=== PATIENT | female | born 1965 | race American Indian/Alaskan Native ===

== ENCOUNTER 2019-03-11 11:15 | Outpatient (CLI) | payer BC ==
--- NOTE | 2019-03-11 13:30 | Mammography Report ---
BILATERAL DIGITAL SCREENING MAMMOGRAM WITH CAD: 03/11/19 11:15:00 CLINICAL: Routine screening. COMPARISON:02/14/15 and 01/25/15 FINDINGS: The breasts are heterogeneously dense, which may obscure small masses. A 6 mm irregular mass with calcifications in the central posterior left breast requires additional imaging.No architectural distortion. The right breast is negative. IMPRESSION: A 6 mm left breast mass with calcifications requiring further workup. BI-RADS CATEGORY: 0 -- Additional Imaging Evaluation Required RECOMMENDATION: Recall for left ML and spot magnification CC and ML views and left breast ultrasound if needed. COMMENT: 1. Dense breast tissue, i.e., adenosis, fibrocystic changes, etc., may obscure an underlying neoplasm. 2. Approximately 10% of cancers are not detected with mammography. 3. A negative mammography report should not delay biopsy if a clinically suspicious mass is present. COMMENT: Patient follow-up letters are generated via our [employer] application.
== END 2019-03-11 11:16 | disposition home or self-care (01) ==
LOC: SPVWC 11:15
PROVIDERS: ATTEND Family Medicine
DX: Z12.31 Encounter for screening mammogram for malignant neoplasm of breast (principal)
CPT/HCPCS: 77067

== ENCOUNTER 2019-03-24 14:50 | Outpatient (CLI) | payer BC ==
--- NOTE | 2019-03-24 16:03 | Mammography Report ---
LEFT DIGITAL DIAGNOSTIC MAMMOGRAM INDICATION: Recall to evaluate a mass with calcifications identified at screening. TECHNIQUE: Digital left mammographic imaging was performed. COMPARISON: 03/11/2019 FINDINGS: Breast Density: There are scattered areas of fibroglandular density. No mass or calcifications are identified on ML and spot magnification ML and CC views. IMPRESSION: BI-RADS Category 1: Negative. Recommend routine screening mammography in one year. A "normal" or negative report should not discourage follow up or biopsy of a clinically significant f inding. A written summary of these findings will be mailed to the patient. The patient will be entered into a mammography reporting system which will generate a reminder letter for the patient's next appointmen t at the appropriate interval. FURTHER INFORMATION: According to the [employer], yearly mammograms are recommend ed starting at age 40 and continuing as long as a woman is in good health. Breast MRI is recommended for women with an approximately 20-25% or greater lifetime risk of breast cancer, including women wi th a strong family history of breast or ovarian cancer and women who have been treated for Hodgkin's disease. Signer Name: Eric Castillo MD Signed: 03/24/2019 3:59 PM Workstation Name: [id number]
== END 2019-03-24 14:51 | disposition home or self-care (01) ==
LOC: SPVWC 14:50
PROVIDERS: ATTEND Family Medicine
DX: R92.8 Other abnormal and inconclusive findings on diagnostic imaging of breast (principal)

== ENCOUNTER 2020-05-03 12:53 | Outpatient (CLI) | payer OTHER ==
--- NOTE | 2020-05-03 15:06 | Mammography Report ---
DIGITAL DIAGNOSTIC MAMMOGRAM WITH CAD, -- 05/03/2020 INDICATION: Postbiopsy mammogram following left breast stereotactic biopsy. TECHNIQUE: Digital left mammographic imaging was performed. This examination was interpreted with the benefit of Computer-aided Detection analysis. COMPARISON: Prior mammogram 04/12/2020 FINDINGS: Breast Density: There are scattered areas of fibroglandular density. Postbiopsy mammogram reveals a biopsy clip in the posterior lower outer quadrant of the left breast. The biopsy clip has migrated approximately 2.5 cm medially. The previously described calcifications h ave been completely removed and are present on specimen radiograph. IMPRESSION: 1. Postbiopsy mammogram as detailed above. Pathology pending. Follow up recommendation: No recall. Post biopsy imaging. A "normal" or negative report should not discourage follow up or biopsy of a clinically significant f inding. A written summary of these findings will be mailed to the patient. The patient will be entered into a mammography reporting system which will generate a reminder letter for the patient's next appointmen t at the appropriate interval. According to the [employer], yearly mammograms are recommended starting at age 40 and continuing as long as a woman is in good health. Breast MRI is recommended for women with an romy roximately 20-25% or greater lifetime risk of breast cancer, including women with a strong family his tory of breast or ovarian cancer and women who have been treated for Hodgkin's disease. Signer Name: Cynthia Fischer MD Signed: 05/03/2020 3:01 PM Workstation Name: [id number]
--- NOTE | 2020-05-03 16:37 | Mammography Report ---
LEFT BREAST BREAST STEREOTACTIC CORE NEEDLE BIOPSY INDICATION: Patient presents for left stereotactic biopsy. The procedure was explained to the patient and informed consent obtained. PROCEDURE: The patient was positioned on the prone biopsy table with wire preparation machine tender and stereotactic images o btained of the left breast. After appropriate imaging, the breast was prepped with Betadine swabs. A total of 10 mL of 1% buffered lidocaine and 10 mL 1% lidocaine with epinephrine was injected using a 25-gauge needle to anesthetize the area surrounding the mammographic lesion. Using a lateral approach, a 9-gauge vacuum-assisted core needle biopsy device was inserted through t he incision to the level of the lesion following the stereotactic coordinates. Stereotactic images we re obtained to confirm accurate positioning of the probe. A total of 6 tissue specimens were excised and transported through the probe. Individual tissue specimens were placed in the lid of the sterile specimen container and radiographed . Upon completion of the procedure, the specimens were placed in a 10% formalin solution and sent for histologic analysis. Pressure was held on the biopsy site utilizing the sterile 4 x 4 gauze until all bleeding subsided. A gauze dressing was placed over the biopsy site to provide a pressure dressing. Postbiopsy instructio ns were reviewed with the patient and a copy given to her. No immediate complications occurred. INTERPRETATION: Digital images made during the procedure show the probe to be appropriately position ed during the biopsy. A micromarker clip was introduced through the probe to the level of the biopsy site POST-PROCEDURE MAMMOGRAM: Refer to separately dictated postbiopsy mammogram. SPECIMEN RADIOGRAPH: Magnification images of the tissue specimen were obtained. Calcifications from the mammographic lesion were present in the tissue specimens. HISTOLOGY: PENDING IMPRESSION: 1. PERCUTANEOUS STEREOTACTICALLY-GUIDED BIOPSY OF THE LEFT BREAST. THE HISTOLOGIC FINDINGS ARE PENDI NG. Signer Name: Cynthia Fischer MD Signed: 05/03/2020 4:33 PM Workstation Name: [id number]
== END 2020-05-03 12:54 | disposition home or self-care (01) ==
LOC: SPVWC 12:53
PROVIDERS: ATTEND Family Medicine
DX: R92.1 Mammographic calcification found on diagnostic imaging of breast (principal); D24.2 Benign neoplasm of left breast; R92.0 Mammographic microcalcification found on diagnostic imaging of breast
CPT/HCPCS: 19081; 77065; 88305; A4648

== ENCOUNTER 2021-03-16 13:38 | Outpatient (CLI) | payer OTHER ==
--- NOTE | 2021-03-16 18:29 | Mammography Report ---
DIGITAL SCREENING MAMMOGRAM WITH CAD, 03/16/2021 CLINICAL INFORMATION / INDICATION: Routine screening mammography. SCREENING MAMMO TECHNIQUE: Digital bilateral 2D mammography was obtained in the craniocaudal and mediolateral obliqu e projections. This examination was interpreted with the benefit of Computer-Aided Detection analysis . COMPARISON: 03/15/2020 FINDINGS: Breast Density: There are scattered areas of fibroglandular density. No dominant mass, suspicious calcifications, or architectural distortion in the right breast. Biopsy marking clip is noted on the left. There is a new nodular density in the 9:00 position of the left breast in the anterior depth near the nipple. This measures approximately 8 mm. IMPRESSION: There is a new 8 mm nodular density in the left breast 9:00 position in the anterior dept h near the nipple. Follow up recommendation: Ultrasound BI-RADS Category 0: Incomplete. Needs additional imaging evaluation and/or prior mammograms for eliceo sanders. A "normal" or negative report should not discourage follow up or biopsy of a clinically significant f inding. A written summary of these findings will be mailed to the patient. The patient will be entered into a mammography reporting system which will generate a reminder letter for the patient's next appointmen t at the appropriate interval. The [employer] recommends yearly mammograms starting at age 40 and continuing as l [place] as a woman is in good health. Breast MRI is recommended for women with an approximate 20-25% or greater lifetime risk of breast cancer, including women with a strong family history of breast or ova tj cancer or who have been treated for Hodgkin's disease. Signer Name: Torsten Arellano MD Signed: 03/16/2021 6:24 PM Workstation Name: [id number]
== END 2021-03-16 13:39 | disposition home or self-care (01) ==
LOC: SPVWC 13:38
PROVIDERS: ATTEND Family Medicine
DX: Z12.31 Encounter for screening mammogram for malignant neoplasm of breast (principal)
CPT/HCPCS: 77067

== ENCOUNTER 2021-03-28 13:37 | Outpatient (CLI) | payer OTHER ==
--- NOTE | 2021-03-28 14:15 | Ultrasound Report ---
ULTRASOUND BREAST LEFT LIMITED, 03/28/2021 CLINICAL INFORMATION / INDICATION: ABNORMAL MAMMOGRAM. Patient presents as a callback from screening mammogram for further evaluation of a new nodular density in the left breast. TECHNIQUE: Targeted ultrasound evaluation was performed of the area of interest. COMPARISON: Prior mammogram 03/16/2021 FINDINGS: Corresponding with the new nodular density seen on recent mammogram, there is a 6 mm complicated cyst versus complex cystic and solid lesion in the left breast 9:00 position located 2 cm from the nipple . No internal vascularity is demonstrated. Targeted ultrasound of the left axilla reveals a few mildl y prominent lymph nodes with cortical thickness measuring up to 5 mm. IMPRESSION: 1. A complicated cyst versus complex cystic and solid lesion corresponds with the recent mammographic finding. This is considered low suspicion for malignancy. However, because this is new, ultrasound-g uided aspiration versus biopsy is recommended. 2. Mildly prominent left axillary lymph nodes are indeterminate but most likely reactive given report ed history of recent Covid vaccination in the left arm. A follow-up left axillary ultrasound could be performed in 3 months to ensure stability or resolution. Follow up recommendation: Biopsy BI-RADS Category 4: Suspicious for Malignancy. A normal or "negative" report should not preclude biopsy or follow-up of a clinically suspicious find ing. Signer Name: Cynthia Fischer MD Signed: 03/28/2021 2:11 PM Workstation Name: [id number]
== END 2021-03-28 13:38 | disposition home or self-care (01) ==
LOC: SPVWC 13:37
PROVIDERS: ATTEND Family Medicine
DX: R92.8 Other abnormal and inconclusive findings on diagnostic imaging of breast (principal)

== ENCOUNTER 2021-06-26 08:34 | Outpatient (CLI) | payer OTHER ==
--- NOTE | 2021-06-26 12:44 | Ultrasound Report ---
ULTRASOUND BREAST LEFT LIMITED, 06/26/2021 CLINICAL INFORMATION / INDICATION: ABN MAMMO 3 MTH F/U. TECHNIQUE: Targeted ultrasound evaluation was performed of the area of interest. COMPARISON: Prior mammogram 03/16/2021 and left breast ultrasound 03/28/2021 FINDINGS: Sonographic evaluation of the left breast at 9:00, continues to demonstrate small hypoechoic mass 2 c m from nipple. The mass measures 3 x 2 mm on today's study previously having measured 8 x 4 mm. There fore, the mass has significantly decreased in size in the 3 month interval. The left axillary lymph nodes were also evaluated. Previously noted cortical thickening of the lymph nodes has resolved. All lymph nodes have normal sonographic morphology and size.. Therefore the previ ously noted axillary adenopathy was reactive, given the patient's history of recent Covid vaccination at that time. IMPRESSION: No sonographic evidence of malignancy. Previously noted mass in the 9:00 position of the left breast has significantly reduced in size and n ow has appearance consistent with mildly complicated cyst. No further evaluation is required. Previously noted left axillary adenopathy has returned to normal appearance/size and no further follo w-up is recommended. Follow up recommendation: Routine yearly BI-RADS Category 2: Benign. A normal or "negative" report should not preclude biopsy or follow-up of a clinically suspicious find ing. Signer Name: Jolynn Fung MD Signed: 06/26/2021 12:40 PM Workstation Name: [id number]
== END 2021-06-26 08:35 | disposition home or self-care (01) ==
LOC: SPVWC 08:34
PROVIDERS: ATTEND Family Medicine
DX: N63.42 Unspecified lump in left breast, subareolar (principal)